=== PATIENT | male | born 1970 | race Caucasian/White ===

== ENCOUNTER 2016-07-21 01:39 | Inpatient (IN) | payer BC, OTHER ==
--- NOTE | ~2016-07-21 | PRECARD ---
H&P [facility] [address] [place]. [address] NAME: MAGDA MONROY : 66 STATUS : ADM IN PAT#: [id number] AGE: 45 ADM/REG DATE : 07/21/16 MR#: [id number] REPORT SERV DATE: 07/21/16 DICTATED BY: CHANEL HUTCHINS DATE: 07/21/16 REPORT STATUS : Draft TRANSCRIBED BY: MODL DATE: 07/21/16 DATE OF ADMISSION: 07/21/2016 REFERRING PHYSICIAN: [facility] ER The primary bag sewer was Dr. Singh, but the patient reports that he has been dismissed from his practice. CHIEF COMPLAINT: Chest pain. REASON FOR ADMISSION: Myocardial infarction. SOURCE: Patient chart. HISTORY OF PRESENT ILLNESS: Mr. Monroy is a 45-year-old white man with coronary artery disease, status post two prior coronary bypass grafting operations and multiple percutaneous interventions, most recently in April at [place]. Since then, Dr. Singh has dismissed him from his practice. He has also had an ICD in December 2015 at [place]. He was in his usual state of health until approximately 2 p.m. yesterday when he had episode of chest pain, took nitroglycerin. He came back at about 10 p.m. up to 10/10 in severity described as crushing substernal chest pain radiating to his jaw and his shoulders, associated with nausea, vomiting, dyspnea, and diaphoresis. It is somewhat like he has had with his heart in the past though not exactly. He came to [facility] Emergency Room and he was found to have inferior ST-segment elevation. Code STEMI was called and he was transferred via [facility] to [facility]. He was still having chest pain on arrival to the catheterization laboratory. REVIEW OF SYSTEMS: All other systems are negative. ALLERGIES: NO KNOWN DRUG ALLERGIES. MEDICATIONS: At home included aspirin one a day, Brilinta 90 mg p.o. b.i.d. The patient reports compliance with his aspirin and his Brilinta. He is also on Crestor and hydrocodone. CARDIAC RISK FACTORS: Cholesterol, tobacco. FAMILY HISTORY: Denies diabetes or hypertension. SOCIAL HISTORY: The patient lives in [place], [place]. He is . He has seven children. Three of had heart trouble. 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 He denies any alcohol or drugs. He does continue to smoke. FAMILY HISTORY: Positive for coronary artery disease. Mother had myocardial infarction at the age under 60. H&P [address] [address] NAME: MAGDA MONROY : 66 STATUS : ADM IN [facility]#: [id number] AGE: 45 ADM/REG DATE : 07/21/16 MR#: [id number] REPORT SERV DATE: 07/21/16 DICTATED BY: CHANEL HUTCHINS DATE: 07/21/16 REPORT STATUS : Draft TRANSCRIBED BY: DELANEY DATE: 07/21/16 PAST MEDICAL HISTORY: Significant for coronary artery disease, status post two prior coronary artery bypass grafting operations in 1999 to four vessels, in 2006 to one vessel, multiple stents most recently in April at [place] by Dr. Singh, ICD in December 2015 at [place], a [employer] device; left carotid endarterectomy seven or eight years ago; asthma; possible sleep apnea; bad teeth. PHYSICAL EXAMINATION: GENERAL: He is a well-developed, well-nourished, elderly, middle-aged white man, appearing older than his stated age, in no acute distress. VITAL SIGNS: Stable. Grossly afebrile. HEENT: Sclerae anicteric. Lips without cyanosis. Carotids 2+ and symmetrical. Left carotid endarterectomy scar. No JVD. No thyromegaly. LUNGS: Clear to auscultation. No use of accessory muscles anteriorly. HEART: Regular rate and rhythm without murmur, gallop, or rub. ABDOMEN: Positive bowel sounds. Soft, nontender. EXTREMITIES: Pulses 2+ and symmetrical. No cyanosis, clubbing, or edema. BACK: No CVA tenderness. MUSCULOSKELETAL: Good tone. NEURO: Alert and oriented x3. STUDIES: EKG reveals sinus rhythm, inferior myocardial infarction with Q-waves and inferior ST-segment elevation, slightly more prominent than previous tracing. Lateral ST depression. Nonspecific intraventricular conduction delay. LABORATORY EXAMINATION: Remarkable for troponin of 0.06 just above the cutoff from 0.02. BNP level of 78. White count 13.3, hemoglobin 14.3, hematocrit 41.7, platelets 372,000. The CPK-MB of 2.6. Sodium 140, potassium 4.2, chloride 101, CO2 of 33, glucose 85, BUN 17, creatinine 0.9. CPK of 88, INR of 1.2. IMPRESSION: 1. Possible acute inferior myocardial infarction, onset 10 p.m. last night by history Killip class 1, still with chest pain. 2. Coronary artery disease, status post two prior coronary bypass grafting operations and multiple percutaneous interventions, most recently in April of [address] [place] Singh has dismissed him from his practice. 3. Status post ICD placement in December 2015 at [place], [employer] device. 4. Cardiac risk factors including cholesterol, tobacco, and family history. 5. Status post left carotid endarterectomy seven or eight years ago. RECOMMENDATIONS: 1. Emergent cardiac catheterization, possible angioplasty already done. See report. Medical therapy. 2. Aspirin and Brilinta. 3. Carvedilol, lisinopril. 4. Crestor 40. Check fasting lipid profile. 5. Nitrates. H&P [address] [address] NAME: MAGDA MONROY : 66 STATUS : ADM IN [facility]#: [id number] AGE: 45 ADM/REG DATE : 07/21/16 MR#: [id number] REPORT SERV DATE: 07/21/16 DICTATED BY: CHANEL HUTCHINS DATE: 07/21/16 REPORT STATUS : Draft TRANSCRIBED BY: DELANEY DATE: 07/21/16 6. Quit smoking. The patient counseled. 7. [employer] ICD check. MARCELLA/DELANEY Chanel Hutchins M.D. / [id number] CC: Chanel Hutchins M.D.
--- NOTE | ~2016-07-21 | DS ---
Discharge Summary [facility] [address] [place]. [address] NAME: MAGDA BALBUENA JR : 66 STATUS : DIS IN PAT#: [id number] AGE: 45 ADM/REG DATE : 07/21/16 MR#: [id number] REPORT SERV DATE: 08/01/16 DICTATED BY: CHANEL HUTCHINS DATE: 07/31/16 REPORT STATUS : Draft TRANSCRIBED BY: DELANEY DATE: 07/31/16 Data Collection from hospitalization DISCHARGE DIAGNOSES: 1. [id number] myocardial infarction. 2. Chest pain. 3. Tobacco use. 4. Coronary artery disease. 5. Asthma. 6. Possible sleep apnea. 7. Bad teeth. 8. Ischemic cardiomyopathy. 9. Hyperlipidemia. CONSULTATION: Dr. Ismael Greenberg. PROCEDURES PERFORMED: 1. Cardiac catheterization, 07/21/2016. 2. CT scan of the chest without contrast, 07/24/2016. DISCHARGE MEDICATIONS: Proventil two puffs via inhaler three times a day as needed and one nebulized inhaler three times a day as needed, aspirin 81 mg daily, Coreg 3.125 mg twice a day as instructed, Zetia 10 mg daily, Imdur 30 mg daily, Prinivil 2.5 mg daily as instructed, Nitrostat 0.4 mg sublingually as needed, Percocet 5/325 one tablet every four hours as needed, Crestor 40 mg at bedtime, Brilinta 90 mg twice a day. CONDITION AT DISCHARGE: Stable. DISPOSITION: The patient was discharged home on a low-sodium, low-cholesterol, cardiac diet with activities as instructed. He would follow up with me two to three weeks following discharge. HOSPITAL COURSE: This is a 45-year-old man, who has coronary artery disease and is status post two prior coronary artery bypass grafting operations and multiple percutaneous interventions, most recently in April at [place]. He had been dismissed from the practice of Dr. Singh. He has had an ICD placed in December 2015 at [place]. He had been in his usual state of health until approximately 2 p.m. on the day prior to this admission, when he had an episode of chest pain. He took nitroglycerin. The pain came back around 10 p.m. and was up to 10/10 in severity. It was described as crushing substernal chest pain, radiating to his jaw and his shoulders associated with nausea, vomiting, dyspnea, and diaphoresis. It was somewhat like he had had with his heart in the past, although not exactly. He came to [facility] emergency room and was found to have inferior ST-segment elevation. Code STEMI was called and he was transferred via [facility] to [facility]. It was felt that he would need to undergo cardiac catheterization and possible angioplasty. He was admitted to the hospital at this time for further evaluation and treatment. Upon admission, he was given aspirin, Brilinta, carvedilol, and lisinopril. Crestor would Discharge Summary [facility] [address] [place]. [address] NAME: MAGDA BALBUENA JR : 66 STATUS : DIS IN PAT#: [id number] AGE: 45 ADM/REG DATE : 07/21/16 MR#: [id number] REPORT SERV DATE: 08/01/16 DICTATED BY: CHANEL HUTCHINS DATE: 07/31/16 REPORT STATUS : Draft TRANSCRIBED BY: DELANEY DATE: 07/31/16 be provided. We were going to check a fasting lipid profile. Nitrates were going to be given. We encouraged him to stop smoking. ICD check was going to be performed. He was taken to the cardiac lab intern, where he underwent the above-mentioned procedure. He tolerated this well and there were no complications. He was felt to have had an ST- elevation myocardial infarction. He was seen by Dr. Ismael Greenberg for assistance with pain management. Medical therapy had been recommended. He continued to have some chest pain. He had been receiving morphine. Reportedly, the morphine was not helping his pain. He also received [place] 5/325. A trial of Percocet would be performed to see if this would improve his pain management over the current management. A CT scan of the chest without contrast was requested. On the , he was feeling good. He was in a normal sinus rhythm. His lungs were clear to auscultation. We continued to encourage him to stop smoking. On the , he still had chest pain on and off. The patient had also complained of chronic leg pain, which had been present for years and had increased over the past two years. It was not daily. It was in the entire leg. It was deep and cramping like. It was 10/10 when it would occur. White blood cell count was 15.5. A CT scan of the chest without contrast was performed. There was prominent calcified pleural plaque adjacent to the left lower lobe. There were mild emphysematous changes in the lung. There was evidence of old granulomatous disease involving the left lung as well as mediastinal and left hilar lymph node. Discharge planning continued. On 07/24/2016, he was alert and cooperative. He had no focal deficits. His CT scan was felt to have been negative. Discharge instructions were given. Due to his improved and stable condition, he was discharged home with the above-stated instructions. Information collected by: Mahnaz Boo I submit the above information as my discharge summary. NAJMA/MODMarie Chanel Hutchins M.D. / [id number] CC: Estephania Lynch MERCEDES V.
--- NOTE | ~2016-07-21 | HP ---
History And Physical [place] [id number] [facility] [place]. [address] NAME: MAGDA MONROY JR : 66 STATUS : ADM IN PAT#: [id number] AGE: 45 ADM/REG DATE : 07/21/16 MR#: [id number] REPORT SERV DATE: 07/24/16 DICTATED BY: MAYCOL GREENBERG DATE: 07/23/16 REPORT STATUS : Draft TRANSCRIBED BY: MODL DATE: 07/23/16 DATE OF ADMISSION: 07/21/2016 REASON FOR CONSULTATION: Assistance with pain management. The history is obtained from the patient and review of his current record. HISTORY OF PRESENT ILLNESS: Mr. Monroy was taken in transfer from [facility] on 07/21/2016 for emergent cardiac catheterization because of a possible acute inferior myocardial infarction in the setting of known coronary artery disease with previous bypass grafting and stenting. Cardiac Cath Conclusions: 1. Three-vessel huslia coronary artery disease. 2. Moderate to severely depressed left ventricular systolic function with an EF of 0.3. 3. No significant mitral regurgitation. 4. Patent MACHUCA to LAD graft. 5. Patent saphenous vein graft to posterolateral branch. Vein graft marker. 6. Occluded saphenous vein graft to the origin with occluded prior stents. No vein graft marker. 7. Occluded saphenous vein graft to obtuse marginal branch proximally with occluded extensive stent sites. Vein graft marker. 8. No other patent vein grafts identified. 9. Patent huslia right internal mammary artery to chest wall not used as graft. 10.Evidence of left subclavian ICD. Recommendations: 1. Medical therapy. 2. Risk factor modification. 3. Angioplasty of the saphenous vein graft to obtuse marginal branch was considered; however, long-term patency was thought to be very poor due to multiple prior interventions and extensive prior stents in excess of 100 mm in length and likely poor distal flow. He was to have been discharged on 07/22, but he appealed his discharge because of continued pain. He continues to have chest pain today, and hospitalist consultation was requested for assistance. I spoke with his RN from last night and today. He is receiving morphine. He received morphine 2 mg at 0258 hours on the 9th, 0845 hours on the 9th, 1625 hours on the 9, 2025 hours on the 9, 1005 hours on the , 1408 hours on the 10th, and 1808 hours on the 10th. He received 4 mg of morphine at 0043 hours on the 10th and 0551 hours on the 10th. Reportedly, morphine is not helping his pain. In addition, he received [place] 5/325 at 0940 hours on the 9th, 1923 hours on the 9th, 0436 hours on the 10th, and 1225 on the 10th. He thinks his current chest pain for which he has taken the above-mentioned opioids is his History And Physical [address] [address] NAME: MAGDA MONROY JR : 66 STATUS : ADM IN PAT#: [id number] AGE: 45 ADM/REG DATE : 07/21/16 MR#: [id number] REPORT SERV DATE: 07/24/16 DICTATED BY: MAYCOL GREENBERG DATE: 07/23/16 REPORT STATUS : Draft TRANSCRIBED BY: DELANEY DATE: 07/23/16 heart pain. He also has chronic leg pain, which has been present for years. It has increased over the last two years. It is not daily. Both legs are equal. It is his entire leg. It is deep. It is cramp like. It is 10/10 when it occurs. Occasionally standing causes this pain, but walking does not. He has no paresthesias, anesthesia, or weakness. He has no back pain or change in bowel or bladder function. He had discussed pain management with his primary care physician in [place], Dr. Kelli Antonio. He reports having better pain control in the past with Percocet. He has no history of VTE, cancer, diabetes, thyroid disease, previous stroke, pancreatitis, hepatitis, cirrhosis, or gastrointestinal bleeding. He has had a single kidney stone. No systemic rheumatic disorder or immunosuppression. No previous ENT issues. PAST SURGICAL HISTORY: CABG x4 in 1999, CABG x1 in 2007, left carotid endarterectomy unclear date, and ICD placement unclear date. ALLERGIES OR INTOLERANCE: Latex. HOME MEDICATIONS: Albuterol, aspirin, [place], Crestor, and Brilinta. SOCIAL HISTORY: Second marriage. Current 13 years, has 7 children from another marriage. Lives in [facility]. 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 Smokes 1 pack per day. No alcohol. FAMILY HISTORY: Mother age 53 and father aged 70 from cardiovascular disease. Four sisters, two with cardiac disease. REVIEW OF SYSTEMS: Complete, done with the patient in room and negative except as noted above. PHYSICAL EXAMINATION: VITAL SIGNS: Temp 97.4, pulse 60, respirations 18, and blood pressure 113/60. GENERAL: This is a stated age-appearing white male, examined in room 6128. He is alert, oriented, cooperative, conversant, appropriate. SKIN: Warm and dry. No rash, petechiae, or ecchymoses. NODES: No palpable axillary, cervical or inguinal. HEENT: Atraumatic with symmetric facies. Lids, sclerae, and conjunctivae negative. No xanthelasma, scleral icterus, or conjunctival petechiae or injection. Pupils are equal, round, and reactive to light. Extraocular movements intact. No nystagmus. Hearing intact. External ears negative. Ear canals and TMs normal. Nose negative. Anterior nares without exudate. Nasal O2 present. Lips, gums, mucosa, hard and soft palates, posterior pharynx, and tongue negative. NECK: No visible JVD or asymmetry. No palpable mass, goiter, or tenderness. Trachea midline. Nontender. LUNGS: Clear to auscultation. Normal respiratory effort. History And Physical [address] [address] NAME: MAGDA MONROY JR : 66 STATUS : ADM IN [facility]#: [id number] AGE: 45 ADM/REG DATE : 07/21/16 MR#: [id number] REPORT SERV DATE: 07/24/16 DICTATED BY: MAYCOL GREENBERG DATE: 07/23/16 REPORT STATUS : Draft TRANSCRIBED BY: DELANEY DATE: 07/23/16 HEART: Regular rate and rhythm. No murmur, gallop, rub, or click. CHEST: Post CABG. Pulses 2+ and symmetric radial, carotid, femoral, and dorsalis pedis. ABDOMEN: Soft and nontender. No guarding, rebound, or rigidity. Cannot feel liver, spleen, kidneys, or aortic pulsation. UPPER AND LOWER EXTREMITIES: No active synovitis, clubbing, or edema. NEUROLOGIC: Mental status normal. Cranial nerves 2 through 12 normal. Deep tendon reflexes symmetric triceps, biceps, knee jerk, and ankle jerk. 2+ with downgoing toes. Negative Haim. Sensory intact to touch. PSYCHIATRIC: Perhaps slightly angry and anxious. DATA: BMP today is normal. Cholesterol was 242 on the 8th with an HDL of 36 and an LDL of 172 and triglycerides of 172. Troponins trended 2.96, 16.7. CBC on the 8th: White count 15.5, hemoglobin 14.1, and platelets 375,000. PTT 39.1, PT 14.8. No chest x-ray. ASSESSMENT: This is a 45-year-old white male with continued chest pain post FL and catheterization with findings as noted. Not a revascularization candidate. 1. Ischemic cardiomyopathy with an EF of 30 with previous ICD. 2. Chronic intermittent leg pain. 3. Hyperlipidemia. 4. Sleep-disordered breathing history. 5. Chronic tobacco use. 6. Leukocytosis. PLAN: Trial of Percocet at his request to see if this improves pain management over current management as described. Get CT chest without contrast to further evaluate chest pain and leukocytosis. If he needs formal pain management referral, this would be best done through his primary care physician, Dr. Kelli Antonio. Further recommendations pending above. DD/MODL Maycol Greenberg M.D. / [id number] CC: Rogelio Nichols M.D.
[~2016-07-21 01:39] MED LIST: ASA5GR PO; ASAB PO; BRILINTA90 MG PO; COREG3 PO; CRESTOR40 MG PO
[2016-07-21 05:38] LABS: BASOPHILS 0.1 %; BASOPHILS ABSOLUTE 0.01 10/3/uL (0.0-0.16); EOSINOPHILS 0.3 %; EOSINOPHILS ABSOLUTE 0.05 10/3/uL (0.0-0.53); HEMATOCRIT 41.2 % (40.0-51.0); HEMOGLOBIN 14.1 g/dL (13.6-17.8); IMMATURE GRANULOCYTES 0.4 %; IMMATURE GRANULOCYTES ABSOLUTE 0.06 10/3/uL (0.0-0.11); LYMPHOCYTES 19.2 %; LYMPHOCYTES ABSOLUTE 2.98 10/3/uL (0.67-4.30); MANUAL DIFF NO %; MEAN CORPUS HGB CONC 34.2 g/dL (32.0-36.0); MEAN CORPUSCULAR HEMOGLOB 31.5 pg (26.0-34.0); MEAN CORPUSCULAR VOLUME 92.2 fL (80-100); MONOCYTES ABSOLUTE 1.25 10/3/uL (0.21-1.20); NEUTROPHILS ABSOLUTE 11.18 10/3/uL (2.02-8.40); PLATELET COUNT 375 10/3/uL (150-400); RBC DISTRIBUTION WIDTH 12.8 % (12.0-16.0); RED CELL COUNT 4.47 10/6/uL (4.7-6.1); WHITE BLOOD CELLS 15.5 10/3/uL (4.5-10.5)
[2016-07-21 05:41] LABS: INTERNATIONAL NORMAL RATI 1.2 UNITS (-); PARTIAL THROMBO TIME 39.1 SEC (22.5-37.2); PROTIME (NOT ORD) 14.8 SEC (12.0-14.5)
[2016-07-21 05:55] LABS: BUN (BLOOD UREA NITROGEN) 16 MG/DL (6-23); CALCIUM, SERUM 7.9 MG/DL (8.5-10.4); CHLORIDE, SERUM 105 MMOL/L (96-112); CK-MB 30.1 NG/ML; CPK 293 U/L (0-200); CREATININE 0.73 MG/DL (0.70-1.30); GFR AFRICAN AMERICAN 128 ML/MIN (>=60); GFR NON AFRICAN AMERICAN 110 ML/MIN (>=60); GLUCOSE, SERUM 100 MG/DL (60-99); POTASSIUM, SERUM 4.3 MMOL/L (3.5-5.3); SODIUM, SERUM 140 MMOL/L (135-148); TRIGLYCERIDE 172 MG/DL (< 150)
[2016-07-21 06:03] LABS: CHOL/HDL RATIO(NOT ORDER) 6.7 (0-5); CHOLESTEROL 242 MG/DL (< 200); CKMB INDEX (NOT ORD) 10.3; CO2 (CARBON DIOXIDE) 27 MMOL/L (24-34); HDL CHOLESTEROL 36 MG/DL (> 39); LDL CHOLESTEROL 172 MG/DL (< 130); NON-HDL CHOLESTEROL 206 MG/DL (< 160)
[2016-07-21 06:04] LABS: TROPONIN I 2.96 NG/ML (<0.05)
[2016-07-21] MEDS ORDERED: NORCO1 TA1 PO (07:25)
[2016-07-21] MEDS ORDERED: PROVHFA INH (07:26)
[2016-07-21] MEDS ORDERED: ALBUTEROL5 INH (07:26)
[2016-07-21 11:20] LABS: CK-MB 96.8 NG/ML; CKMB INDEX (NOT ORD) 12.2
[2016-07-21 11:21] LABS: TROPONIN I 16.7 NG/ML (<0.05)
[2016-07-22 06:32] LABS: BUN (BLOOD UREA NITROGEN) 14 MG/DL (6-23); CALCIUM, SERUM 8.4 MG/DL (8.5-10.4); CHLORIDE, SERUM 102 MMOL/L (96-112); CREATININE 0.83 MG/DL (0.70-1.30); GFR AFRICAN AMERICAN 121 ML/MIN (>=60); GFR NON AFRICAN AMERICAN 105 ML/MIN (>=60); GLUCOSE, SERUM 90 MG/DL (60-99); POTASSIUM, SERUM 4.1 MMOL/L (3.5-5.3); SODIUM, SERUM 141 MMOL/L (135-148)
[2016-07-22 06:33] LABS: CO2 (CARBON DIOXIDE) 32 MMOL/L (24-34)
[2016-07-22] MEDS ORDERED: PRIN2.5 PO (14:12)
[2016-07-22] MEDS ORDERED: ZETIA PO (14:12)
[2016-07-22] MEDS ORDERED: COREG3 PO (14:12)
[2016-07-22] MEDS ORDERED: NITROSTAT0.4 MG SL (14:16)
[2016-07-23 06:32] LABS: BUN (BLOOD UREA NITROGEN) 14 MG/DL (6-23); CALCIUM, SERUM 8.5 MG/DL (8.5-10.4); CHLORIDE, SERUM 102 MMOL/L (96-112); CO2 (CARBON DIOXIDE) 30 MMOL/L (24-34); GFR AFRICAN AMERICAN 123 ML/MIN (>=60); GFR NON AFRICAN AMERICAN 106 ML/MIN (>=60); GLUCOSE, SERUM 98 MG/DL (60-99); SODIUM, SERUM 143 MMOL/L (135-148)
[2016-07-24] MEDS ORDERED: IMDUR30 PO (14:46)
[2016-07-24] MEDS ORDERED: PCET PO (14:48)
== END 2016-07-24 16:21 | disposition home or self-care (01) | DRG 281 ==
LOC: SSU2 01:39 → SSU1 04:03 → 6NO 15:07
PROVIDERS: Internal Medicine Cardiovascular Disease
PROC: 4A023N7 Measurement of Cardiac Sampling and Pressure, Left Heart, Percutaneous Approach (ICD-10-PCS; principal; 2016-07-21)
PROC: B2111ZZ Fluoroscopy of Multiple Coronary Arteries using Low Osmolar Contrast (ICD-10-PCS; 2016-07-21)
PROC: B2131ZZ Fluoroscopy of Multiple Coronary Artery Bypass Grafts using Low Osmolar Contrast (ICD-10-PCS; 2016-07-21)
PROC: B2181ZZ Fluoroscopy of Left Internal Mammary Bypass Graft using Low Osmolar Contrast (ICD-10-PCS; 2016-07-21)
PROC: B2151ZZ Fluoroscopy of Left Heart using Low Osmolar Contrast (ICD-10-PCS; 2016-07-21)
DX: I21.3 ST elevation (STEMI) myocardial infarction of unspecified site (principal); I23.7 Postinfarction angina; I25.718 Atherosclerosis of autologous vein coronary artery bypass graft(s) with other forms of angina pectoris; T82.855A Stenosis of coronary artery stent, initial encounter; I73.9 Peripheral vascular disease, unspecified; F17.210 Nicotine dependence, cigarettes, uncomplicated; I25.5 Ischemic cardiomyopathy; E78.5 Hyperlipidemia, unspecified; M79.606 Pain in leg, unspecified; D72.829 Elevated white blood cell count, unspecified; Z79.82 Long term (current) use of aspirin; Z95.810 Presence of automatic (implantable) cardiac defibrillator; Z87.442 Personal history of urinary calculi
CPT/HCPCS: 71250; 80048; 80061; 82550; 82553; 82962; 83735; 84484; 85025; 85347; 85610; 85730; 93005; 93288; 93459; 99152; 99153; A9270-GY; C1769; C1894; J0583; J2250; J2405; J3010; Q9967

== ENCOUNTER 2016-08-07 02:19 | Observation (INO) | payer BC, OTHER ==
--- NOTE | ~2016-08-07 | PRECARD ---
H&P PRE [facility] [address] [facility] [place]. [address] NAME: MAGDA MONROY JR : 66 STATUS : ADM [place] PAT#: [id number] AGE: 45 ADM/REG DATE : 08/07/16 MR#: [id number] REPORT SERV DATE: 08/07/16 DICTATED BY: CHANEL HUTCHINS DATE: 08/07/16 REPORT STATUS : Draft TRANSCRIBED BY: MODMarie DATE: 08/07/16 DATE OF ADMISSION: 08/07/2016 REFERRING PHYSICIAN: Emergency Room. CHIEF COMPLAINT: Chest pain. REASON FOR ADMISSION: Same. SOURCE: Patient chart. HISTORY OF PRESENT ILLNESS: Mr. Monroy is a 45-year-old white man with extensive coronary artery disease. He was last admitted 07/21/2016 for a jyv-[id number] elevation myocardial infarction. He had cardiac catheterization. Recommendations were for medical therapy. He stayed several more days with pain management. Hospitalist Service, Dr. Greenberg helped adjust his pain medicines. He was given followup with his primary physician, Pain Management, and myself. Since then, he has had chest pain on and off since yesterday, came to [place], and was transferred to [facility] for further care. He has chest pain described as 6/10 like something sitting on his chest. He has seen Pain Management, Dr. Antonio, has called in hospice, hospice is ready to take over and have accepted him according to the patient. He wants to leave against medical advice right this minute. His ride is already waiting for him. He refuses to stay for a second set of cardiac enzymes. REVIEW OF SYSTEMS: All other systems are negative. ALLERGIES: LATEX. MEDICATIONS: Please see his home list on the chart. PAST MEDICAL HISTORY: Significant for extensive coronary artery disease. He has had a coronary artery bypass grafting and multiple angioplasties and stents. Last catheterization 07/21/2016, recommendations were for medical therapy. He has had ICD placement. Left carotid endarterectomy. SOCIAL HISTORY: Lives in [place], second marriage, current of 13 years with seven children from another marriage, some have high cholesterol. 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 Smokes a pack a day. No alcohol. FAMILY HISTORY: Mother at age 53. Father at age 70 from cardiovascular disease. Four sisters, two with cardiac disease. PHYSICAL EXAMINATION: GENERAL: A well-developed, well-nourished middle-aged white man, in no acute distress. VITAL SIGNS: Blood pressure 102/57, pulse 80, temperature 97.5. HEENT: Sclerae anicteric. Lips without cyanosis. Carotids 2+ and symmetrical. Bilateral H&P PRE [address] [address] NAME: MAGDA MONROY JR : 66 STATUS : ADM [place] PAT#: [id number] AGE: 45 ADM/REG DATE : 08/07/16 MR#: [id number] REPORT SERV DATE: 08/07/16 DICTATED BY: CHANEL HUTCHINS DATE: 08/07/16 REPORT STATUS : Draft TRANSCRIBED BY: DELANEY DATE: 08/07/16 transmitted murmurs versus bruits. No JVD. No thyromegaly. LUNGS: Clear to auscultation except for a few wheezes. No use of accessory muscles. HEART: Regular rate and rhythm without murmur, gallop, or rub. ABDOMEN: Positive bowel sounds. Soft, nontender. EXTREMITIES: Pulses 2+ and symmetrical. No cyanosis, clubbing, or edema. BACK: No CVA tenderness. MUSCULOSKELETAL: Good tone. NEURO: Alert and oriented x3. EKG reveals sinus rhythm, incomplete right bundle-branch block, nonspecific ST-T wave changes. Telemetry reveals sinus rhythm, occasional nonsustained VT. LABORATORY EXAMINATION: Included a sodium 140, potassium 4.1, chloride 101, CO2 pending, BUN 12, creatinine 0.89, glucose 98. White count 10.2, hemoglobin 14.2, hematocrit 41.5, platelets 269,000. INR 1.2. CPK 97, MB 2.1. Troponin I of 0.26. Chest x-ray, 08/06, small pleural effusion; density, left pleura. He had CT scan at that time. He also has an ICD left infraclavicular area. IMPRESSION: 1. Chest pain of unclear etiology, some perhaps including angina. 2. Severe coronary artery disease, status post coronary artery bypass grafting and percutaneous intervention. Recommendations were for medical management at last catheterization a couple weeks ago. 3. Ischemic cardiomyopathy. Last LVEF of 30%. 4. Status post ICD placement. 5. History of nonsustained VT. 6. Continued tobacco use. 7. Chronic pain. RECOMMENDATIONS: Patient has already been seen by Tracie Chacon, nurse practitioner, and admission orders have been written. He was also given prescriptions for nitroglycerin patch, and Ranexa was added to his regimen. I have recommended that he stay for additional cardiac enzymes and see if medication changes benefit, however, the patient wishes to leave immediately against medical advice. He already has hospice followup and plans to follow up with hospice and pain management. MARCELLA/DELANEY Chanel Hutchins M.D. / [id number] CC: Gilbert Villanueva M.D.
[~2016-08-07 02:19] MED LIST changes: +ALBUTEROL5 INH; +IMDUR30 PO; +NITROSTAT0.4 MG SL; +NORCO1 TA1 PO; +PCET PO; +PRIN2.5 PO; +PROVHFA INH; +ZETIA PO
[2016-08-07 04:51] LABS: BASOPHILS 0.2 %; BASOPHILS ABSOLUTE 0.02 10/3/uL (0.0-0.16); EOSINOPHILS 1.4 %; EOSINOPHILS ABSOLUTE 0.14 10/3/uL (0.0-0.53); HEMATOCRIT 41.5 % (40.0-51.0); HEMOGLOBIN 14.2 g/dL (13.6-17.8); IMMATURE GRANULOCYTES 0.2 %; IMMATURE GRANULOCYTES ABSOLUTE 0.02 10/3/uL (0.0-0.11); LYMPHOCYTES 31.8 %; LYMPHOCYTES ABSOLUTE 3.24 10/3/uL (0.67-4.30); MEAN CORPUS HGB CONC 34.2 g/dL (32.0-36.0); MEAN CORPUSCULAR HEMOGLOB 31.3 pg (26.0-34.0); MEAN CORPUSCULAR VOLUME 91.4 fL (80-100); MEAN PLATELET VOLUME 10.1 fL (9.2-13.0); MONOCYTES 8.7 %; MONOCYTES ABSOLUTE 0.89 10/3/uL (0.21-1.20); NEUTROPHILS 57.7 %; NEUTROPHILS ABSOLUTE 5.88 10/3/uL (2.02-8.40); PLATELET COUNT 269 10/3/uL (150-400); RBC DISTRIBUTION WIDTH 12.5 % (12.0-16.0); RED CELL COUNT 4.54 10/6/uL (4.7-6.1); WHITE BLOOD CELLS 10.2 10/3/uL (4.5-10.5)
[2016-08-07 04:52] LABS: MANUAL DIFF NO %
[2016-08-07 04:58] LABS: INTERNATIONAL NORMAL RATI 1.2 UNITS (-); PARTIAL THROMBO TIME 31.2 SEC (22.5-37.2); PROTIME (NOT ORD) 14.6 SEC (12.0-14.5)
[2016-08-07 05:06] LABS: BUN (BLOOD UREA NITROGEN) 12 MG/DL (6-23); CALCIUM, SERUM 8.8 MG/DL (8.5-10.4); CHLORIDE, SERUM 101 MMOL/L (96-112); CO2 (CARBON DIOXIDE) 34 MMOL/L (24-34); CREATININE 0.89 MG/DL (0.70-1.30); GFR AFRICAN AMERICAN 118 ML/MIN (>=60); GFR NON AFRICAN AMERICAN 102 ML/MIN (>=60); GLUCOSE, SERUM 90 MG/DL (60-99); HDL CHOLESTEROL 39 MG/DL (> 39); POTASSIUM, SERUM 4.1 MMOL/L (3.5-5.3); SGPT(ALT) 26 U/L (5-65); SODIUM, SERUM 140 MMOL/L (135-148)
[2016-08-07 05:09] LABS: CHOL/HDL RATIO(NOT ORDER) 4.3 (0-5); CHOLESTEROL 168 MG/DL (< 200); LDL CHOLESTEROL 115 MG/DL (< 130); NON-HDL CHOLESTEROL 129 MG/DL (< 160); TRIGLYCERIDE 74 MG/DL (< 150); TROPONIN I 0.26 NG/ML (<0.05)
[2016-08-07 05:30] LABS: CK-MB 2.1 NG/ML; CPK 97 U/L (0-200)
[2016-08-07] MEDS ORDERED: RAN500 PO (13:15)
[2016-08-07] MEDS ORDERED: NITROII20C TOP (13:16)
== END 2016-08-07 15:05 | disposition left against medical advice (07) ==
LOC: 7NO 02:19
PROVIDERS: Internal Medicine Cardiovascular Disease
DX: R07.9 Chest pain, unspecified (principal); I25.10 Atherosclerotic heart disease of native coronary artery without angina pectoris; I25.5 Ischemic cardiomyopathy; G89.29 Other chronic pain; I21.4 Non-ST elevation (NSTEMI) myocardial infarction; I22.9 Subsequent ST elevation (STEMI) myocardial infarction of unspecified site; Z91.040 Latex allergy status; Z95.1 Presence of aortocoronary bypass graft
CPT/HCPCS: 71010; 80048; 80061; 82550; 82553; 83735; 84460; 84484; 85025; 85610; 85730; 93005; 96374; 96375; 96376; A9270-GY; G0378; J1170; J2405